=== PATIENT | male | born 1935 | race Caucasian/White ===

== ENCOUNTER → 2017-05-10 | Outpatient (CLI) | payer MEDICARE, BC ==
[2017-05-10] VITALS (13 sets, daily range): BP systolic 104–135; BP diastolic 47–73; PULSE 60–79
[~2017-05-10] VITALS: Ht 170.2 cm; Wt 62.0 kg
[~2017-05-10] MED LIST: ASPIRIN E.C. 8181 MG PO; CALCIUM 600/VIT1 CAP PO; CRANBERRY 100 M1 SGL PO; FLOMAX 0.40.4 MG/CAP PO; MULTIPLE VITAMI1 CAP PO; NORCO 325 MG-51 TAB PO; ZOCOR 10MG10 MG PO
[2017-05-10 09:54] LABS: PROTHROMBIN TIME 11.7 SECONDS (9.7-12.8)
== END ==
LOC: COL.RAD 09:16
PROVIDERS: Internal Medicine
DX: C20 Malignant neoplasm of rectum (principal); C78.7 Secondary malignant neoplasm of liver and intrahepatic bile duct; Z85.6 Personal history of leukemia
CPT/HCPCS: J2250; J3010

== ENCOUNTER 2017-05-14 08:00 | Day surgery (SDC) | payer MEDICARE, BC ==
[~2017-05-14] VITALS: Ht 170.2 cm; Wt 63.5 kg
[~2017-05-14 08:00] MED LIST changes: -NORCO 325 MG-51 TAB PO
[2017-05-14 08:45] VITALS: BP 122/57; PULSE 71; TEMP 97.2
[2017-05-14 11:00] VITALS: BP 113/49; PULSE 56; TEMP 97.2
[2017-05-14] MEDS ORDERED: NORCO 325 MG-51 TAB PO (11:04)
[2017-05-14 11:15] VITALS: BP 113/50; PULSE 60
[2017-05-14 11:30] VITALS: BP 111/93; PULSE 59
[2017-05-14 11:45] VITALS: BP 110/64; PULSE 57
[2017-05-14 12:15] VITALS: BP 100/42; PULSE 60
== END 2017-05-14 12:30 | disposition home or self-care (01) ==
LOC: SDCO 08:00
DX: C19 Malignant neoplasm of rectosigmoid junction (principal); E78.00 Pure hypercholesterolemia, unspecified; J45.909 Unspecified asthma, uncomplicated; C78.7 Secondary malignant neoplasm of liver and intrahepatic bile duct; Z85.828 Personal history of other malignant neoplasm of skin; M19.90 Unspecified osteoarthritis, unspecified site
CPT/HCPCS: C1788; J0690; J2405; J2704; J3010; J7120

== ENCOUNTER → 2019-10-20 | Outpatient (CLI) | payer MEDICARE, BC ==
[~2019-10-20] MED LIST changes: +NORCO 325 MG-51 TAB PO
== END ==
LOC: COL.LAB 11:17
DX: Z11.59 Encounter for screening for other viral diseases (principal)

== ENCOUNTER → 2019-11-12 | Outpatient (CLI) | payer MEDICARE, BC | LOC: COL.LAB 09:51 | DX: Z20.828 Contact with and (suspected) exposure to other viral communicable diseases (principal) ==